=== PATIENT | male | born 1985 ===

== ENCOUNTER 2022-07-29 16:17 | Emergency (ER) | payer SELFPAY ==
[~2022-07-29] VITALS: Ht 170.2 cm; Wt 113.4 kg
--- NOTE | 2022-07-29 16:32 | ED Chest Pain ---
General Chief Complaint: Chest Pain Stated Complaint: CHEST PAIN RIGHT ARM/LEGS SHAKEY Nursing Triage Note: PT AMB TO [facility] 6 WITH COMPLAINT OF CP, SOA AND RIGHT ARM PAIN. STATES SYMPTOMS STARTED AFTER LUNCH. Source: patient Exam Limitations: no limitations (IESHA HE) History of Present Illness Date Seen by Provider: Jul 29, 2022 Time Seen by Provider: 16:23 Initial Comments Patient to the ER by private conveyance from home with chief complaint of shakiness and substernal epigastric chest pain. Pain radiates down to the right rib. He has occasional indigestion. No history of coronary disease no family history of coronary disease no hypertension hyperlipidemia diabetes stroke or family history of coronary disease. Non-smoker, occasionally drinks. No history of pancreatitis. He had his gallbladder out in [place] for biliary sludge. (IESHA HE) Allergies and Home Medications Allergies Coded Allergies: No Known Drug Allergies (Unverified , 07/29/22) Patient Home Medication List Home Medication List Reviewed: Yes (IESHA HE) Review of Systems Review of Systems Constitutional: No chills, No diaphoresis EENTM: No Blurred Vision, No Double Vision Respiratory: Denies Cough, Denies Shortness of Air Cardiovascular: See HPI, Chest Pain; Denies Lightheadedness Gastrointestinal: Denies Abdomen Distended; Abdominal Pain; Denies Constipated, Denies Diarrhea, Denies Nausea Genitourinary: Denies Burning, Denies Discharge Musculoskeletal: No back pain, No joint pain (IESHA HE) All Other Systems Reviewed Negative Unless Noted: Yes (IESHA HE) Past Mtwiceb-Mdtsjf-Cjvuwf Hx Patient Social History Tobacco Use?: No Use of E-Cig and/or Vaping dev: No Substance use?: No Alcohol Use?: No Pt feels they are or have been: No (IESHA HE) Physical Exam Vital Signs Vital Signs - First Documented 07/29/22 16:23 Pulse 79 Resp 21 B/P (MAP) 163/112 (129) Pulse Ox 95 O2 Delivery Room Air (TAMMY PATEL DO) Vital Signs Capillary Refill : Less Than 3 Seconds (IESHA HE) Height, Weight, BMI Height: '" Weight: lbs. oz. kg; 39.00 BMI Method: General Appearance: No Apparent Distress, WD/WN, Obese HEENT: PERRL/EOMI, TMs Normal, Normal ENT Inspection, Pharynx Normal, Moist Mucous Membranes Neck: Full Range of Motion, Normal Inspection Respiratory: Lungs Clear, Normal Breath Sounds, No Accessory Muscle Use, No Respiratory Distress Cardiovascular: Regular Rate, Rhythm, No Edema, Normal Peripheral Pulses Gastrointestinal: Normal Bowel Sounds, No Organomegaly, Non Tender, Soft Extremity: Normal Capillary Refill, Normal Inspection, No Pedal Edema Neurologic/Psychiatric: Alert, Oriented x3 (IESHA HE) Progress/Results/Core Measures Results/Orders Lab Results Laboratory Tests Test 07/29/22 16:35 07/29/22 17:44 Range/Units White Blood Count 10.4 4.3-11.0 10^3/uL Red Blood Count 5.69 H 4.30-5.52 10^6/uL Hemoglobin 17.0 13.3-17.7 g/dL Hematocrit 48 40-54 % Mean Corpuscular Volume 84 80-99 fL Mean Corpuscular Hemoglobin 30 25-34 pg Mean Corpuscular Hemoglobin Concent 36 32-36 g/dL Red Cell Distribution Width 12.6 10.0-14.5 % Platelet Count 271 130-400 10^3/uL Mean Platelet Volume 10.2 9.0-12.2 fL Immature Granulocyte % (Auto) 1 % Neutrophils (%) (Auto) 41 L 42-75 % Lymphocytes (%) (Auto) 46 H 12-44 % Monocytes (%) (Auto) 5 0-12 % Eosinophils (%) (Auto) 7 0-10 % Basophils (%) (Auto) 1 0-10 % Neutrophils # (Auto) 4.3 1.8-7.8 10^3/uL Lymphocytes # (Auto) 4.7 H 1.0-4.0 10^3/uL Monocytes # (Auto) 0.6 0.0-1.0 10^3/uL Eosinophils # (Auto) 0.7 H 0.0-0.3 10^3/uL Basophils # (Auto) 0.1 0.0-0.1 10^3/uL Immature Granulocyte # (Auto) 0.1 0.0-0.1 10^3/uL Prothrombin Time 13.4 12.2-14.7 SEC INR Comment 1.0 0.8-1.4 Activated Partial Thromboplast Time 32 24-35 SEC Sodium Level 141 135-145 MMOL/L Potassium Level 4.1 3.6-5.0 MMOL/L Chloride Level 101 98-107 MMOL/L Carbon Dioxide Level 17 L 21-32 MMOL/L Anion Gap 23 H 5-14 MMOL/L Blood Urea Nitrogen 14 7-18 MG/DL Creatinine 0.84 0.60-1.30 MG/DL Estimat Glomerular Filtration Rate 117 BUN/Creatinine Ratio 17 Glucose Level 110 H 70-105 MG/DL Calcium Level 10.0 8.5-10.1 MG/DL Corrected Calcium 8.5-10.1 MG/DL Magnesium Level 1.9 1.6-2.4 MG/DL Total Bilirubin 0.4 0.1-1.0 MG/DL Aspartate Amino Transf (AST/SGOT) 48 H 5-34 U/L Alanine Aminotransferase (ALT/SGPT) 87 H 0-55 U/L Alkaline Phosphatase 82 40-136 U/L Myoglobin 37.8 10.0-92.0 NG/ML Troponin I < 0.028 < 0.028 <0.028 NG/ML Total Protein 10.1 H 6.4-8.2 GM/DL Albumin 4.9 H 3.2-4.5 GM/DL Lipase 40 8-78 U/L (JORGE,TAMMY K DO) Medications Given in ED Current Medications Medications Dose Ordered Sig/Estrella Route Start Time Stop Time Status Last Admin Dose Admin Al Hydrox/Mg Hydrox/Simethicone 30 ml ONCE ONCE PO 07/29/22 16:45 07/29/22 16:46 DC 07/29/22 16:50 30 ML Aspirin 324 mg ONCE ONCE PO 07/29/22 16:45 07/29/22 16:46 DC 07/29/22 16:55 324 MG Lidocaine HCl 15 ml ONCE ONCE PO 07/29/22 16:45 07/29/22 16:46 DC 07/29/22 16:51 15 ML (JORGE,TAMMY K DO) Vital Signs/I&O 07/29/22 16:23 Pulse 79 Resp 21 B/P (MAP) 163/112 (129) Pulse Ox 95 O2 Delivery Room Air (JORGE,TAMMY K DO) Blood Pressure Mean: 129 Progress Progress Note : Time: 17:10 Progress Note Atypical coronary syndrome, GERD, lung disease, pancreatitis versus other. We will get some labs. His pain had pretty much resolved by the time with GI cocktail. (IESHA HE) Progress Note : Progress Note ASSUMED CARE OF PT AT SHIFT CHANGE. REPEAT TROPONIN IS NEGATIVE. PT IS SYMPTOM FREE (TAMMY PATEL ) Initial ECG Impression Date: Jul 29, 2022 Initial ECG Impression Time: 16:29 Initial ECG Rate: 82 Initial ECG Rhythm: Normal Sinus Initial ECG Intervals: Normal Initial ECG Impression: Normal Initial ECG Comparisson: No Previous ECG Available Comment Normal sinus rhythm without clinically relevant ST elevation or depression. (IESHA HE) Diagnostic Imaging Diagonstic Imaging: Xray Plain Films/CT/US/NM/MRI: chest Comments [facility], [place] NAME: COREY NICOLELENA Jerri MED REC#: [id number] PT STATUS: REG ER : 1985 PHYSICIAN: IESHA HE MD ADMIT DATE: 07/29/22/ER Draft Date of Exam:07/29/22 CHEST 1 VIEW, AP/PA ONLY INDICATION: Chest pain AP view of the chest is obtained. COMPARISON: No previous study is available for comparison at this time. FINDINGS: Heart size and pulmonary vasculature are within normal limits, and the lungs are clear, bilaterally. IMPRESSION: Unremarkable chest. Dictated on workstation # [id number] Dict: 07/29/221655 Trans: 07/29/221656 [facility] [id number] Interpreted by: ALEX MARTINEZ MD Electronically signed by: Reviewed: Reviewed by Me (IESHA HE) Departure Impression Primary Impression: Chest pain Qualified Codes: R07.9 - Chest pain, unspecified Additional Impression: POSSIBLE GERD Disposition: 01 HOME, SELF-CARE Condition: Improved Departure-Patient Inst. Decision time for Depature: 18:14 (IESHA HE) Referrals: KIMANI DAVIS MD FACP FACC CCDS NO,LOCAL PHYSICIAN (PCP) Primary Care Physician Patient Instructions: Chest Pain (DC) Add. Discharge Instructions: Its not entirely clear today what your chest pain is from. We could not find any evidence that you are having a heart attack however your pain was resolving before we got a chance to try antacids. I suspect that your acid reflux may be part of it. Start taking omeprazole 40 mg daily for the next month. Call Dr. Davis, cardiology make a follow-up appointment in the next 2 to 4 weeks for an appropriate work-up of your heart and chest pain today. Return to the ER if you have persistent chest pain that does not improve with antacid such as Maalox, Mylanta, Tums, Rolaids etc. All discharge instructions reviewed with patient and/or family. Voiced understanding. Copy Copies To 1: KIMANI DAVIS MD FACP FACC CCDS IESHA HE Jul 29, 2022 16:32 TAMMY PATEL DO Jul 29, 2022 18:21
[2022-07-29] MEDS ORDERED: LIDOCAINE 2% VISCOUS 15 ML UDC PO ONE (16:45)
[2022-07-29] MEDS ORDERED: ASPIRIN 81 MG CHEW (CHILDREN'S ASA) PO ONE (16:45)
[2022-07-29] MEDS ORDERED: ANTACID SUSP 30 ML UDC (MYLANTA) PO ONE (16:45)
[2022-07-29 16:47] LABS: BASOPHILS # (AUTO) 0.1 10^3/uL (0.0-0.1); BASOPHILS % (AUTO) 1 % (0-10); EOSINOPHILS # (AUTO) 0.7 10^3/uL (0.0-0.3); EOSINOPHILS % (AUTO) 7 % (0-10); HEMATOCRIT 48 % (40-54); LYMPHOCYTES # (AUTO) 4.7 10^3/uL (1.0-4.0); LYMPHOCYTES % (AUTO) 46 % (12-44); MEAN CORPUSCULAR HEMOGLOBIN 30 pg (25-34); MEAN CORPUSCULAR HGB CONC 36 g/dL (32-36); MEAN CORPUSCULAR VOLUME 84 fL (80-99); MEAN PLATELET VOLUME 10.2 fL (9.0-12.2); MONOCYTES # (AUTO) 0.6 10^3/uL (0.0-1.0); MONOCYTES % (AUTO) 5 % (0-12); NEUTROPHILS # (AUTO) 4.3 10^3/uL (1.8-7.8); NEUTROPHILS % (AUTO) 41 % (42-75); PLATELET COUNT 271 10^3/uL (130-400); WHITE BLOOD COUNT 10.4 10^3/uL (4.3-11.0)
--- NOTE | 2022-07-29 16:57 | Diagnostic Imaging Report ---
INDICATION: Chest pain AP view of the chest is obtained. COMPARISON: No previous study is available for comparison at this time. FINDINGS: Heart size and pulmonary vasculature are within normal limits, and the lungs are clear, bilaterally. IMPRESSION: Unremarkable chest. Dictated by: Dictated on workstation # [id number]
[2022-07-29 16:59] LABS: ALBUMIN 4.9 GM/DL (3.2-4.5); CHLORIDE 101 MMOL/L (98-107); POTASSIUM 4.1 MMOL/L (3.6-5.0); PROTHROMBIN TIME PATIENT 13.4 SEC (12.2-14.7); SODIUM 141 MMOL/L (135-145)
[2022-07-29 17:01] LABS: GLUCOSE 110 MG/DL (70-105); TOTAL PROTEIN 10.1 GM/DL (6.4-8.2)
[2022-07-29 17:02] LABS: CARBON DIOXIDE 17 MMOL/L (21-32)
[2022-07-29 17:03] LABS: BILIRUBIN,TOTAL 0.4 MG/DL (0.1-1.0)
[2022-07-29 17:05] LABS: ALKALINE PHOSPHATASE 82 U/L (40-136); CREATININE SERUM 0.84 MG/DL (0.60-1.30); GFR ESTIMATED 117
[2022-07-29 17:06] LABS: BUN/CREATININE RATIO 17
[2022-07-29 17:07] LABS: MAGNESIUM 1.9 MG/DL (1.6-2.4)
[2022-07-29 17:08] LABS: ALANINE AMINOTRANSFERASE 87 U/L (0-55)
[2022-07-29 17:09] LABS: LIPASE 40 U/L (8-78)
[2022-07-29 18:39] VITALS: BP 128/80
== END 2022-07-29 18:39 | disposition home or self-care (01) ==
LOC: ER 16:21
DX: R07.2 Precordial pain (principal); E66.9 Obesity, unspecified; Z68.39 Body mass index [BMI] 39.0-39.9, adult
CPT/HCPCS: 36415; 71045; 80053; 83690; 83735; 83874; 84484; 85025; 85610; 85730; 93005